=== PATIENT | male | born 1960 | race African-American/Black ===

== ENCOUNTER → 2017-05-30 | Outpatient (CLI) | payer OTHER ==
--- NOTE | 2017-06-01 13:11 | RADIOLOGY REPORT (SQ) ---
EXAM DESCRIPTION: MRI LT UPPER JOINT WITHOUT COMPLETED DATE/TIME: 05/30/2017 10:12 am REASON FOR STUDY: PAIN AND DECREASED ROM M25.512 PAIN IN LEFT SHOULDER COMPARISON: None. TECHNIQUE: Left shoulder images acquired and stored on PACS. Multiplanar imaging to include fat sens itive sequences such as T1, water sensitive sequences such as FST2/STIR, cartilage sensitive sequence s such as FSPD/gradient-echo sequences. LIMITATIONS: Mild motion artifact on the single coronal sequence obtained. FINDINGS: BONE MARROW AND CORTEX: No worrisome bone lesions or marrow replacement. No occult fractur es. JOINT OR BURSAL EFFUSION: No significant joint or bursal fluid. No suggestion of loose bodies. GLENO-HUMERAL ARTICULATION: Normal articulation. No subluxation. No cystic change. No osteophytes or cartilage loss. ACROMION AND AC JOINT: AC joint relatively intact without significant overgrowth or widening. Mild anterolateral down slope of the acromion may predispose to impingement. ROTATOR CUFF AND INTERVAL: No significant tear or signal alteration. No cuff muscle atrophy. Mild scar in the rotator interval may reflect adhesive capsulitis. LABRUM AND BICEPS LABRAL COMPLEX: Mild signal in the biceps anchor but high-grade slap tear not cary pected. Biceps tendon intact. REMAINDER OF LABRUM AND IGHL : Generally intact inferior labrum. Mild capsular thickening. Likely r elated to adhesive capsulitis. PERIARTICULAR AND ADJACENT SOFT TISSUES: No masses or abnormal nodes. OTHER: No other significant finding. IMPRESSION: 1. Findings which likely reflect adhesive capsulitis. 2. Cuff relatively intact. 3. M inimal signal most superior labrum, doubt high-grade slap tear. Biceps tendon intact. TECHNICAL DOCUMENTATION: JOB ID: [id number] [employer]- All Rights Reserved Reading location - IP/workstation name: [email or web address]
== END ==
LOC: RAD 09:42
PROVIDERS: ATTEND Family Medicine
DX: M25.512 Pain in left shoulder (principal)